=== PATIENT | male | born 1985 | race Caucasian/White ===

== ENCOUNTER 2016-10-05 14:28 | Emergency (ER) | payer BC ==
[2016-10-05 15:26] VITALS: BP 124/74
--- NOTE | 2016-10-05 15:51 | UC ---
Throat Pain/Nasal Teofilo HPI - HPI Summary HPI Summary: 30 year old male with complaints of sudden onset last evening of stuffy runny, scratchy throat, and cough. He states he has improved with over the counter decongestant. 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 Denies fever, chills or difficulty breathing - History of Current Complaint Chief Complaint: UCRespiratory Stated Complaint: COUGH,FEVER Time Seen by Provider: 10/05/16 15:37 Hx Obtained From: Patient Onset/Duration: Sudden Onset, Lasting Days - 1, Still Present Severity: Moderate Cough: Nonproductive Associated Signs & Symptoms: Positive: Dysphagia - mild, Nasal Discharge - clear , Fever - not measured. Negative: FB Sensation, Drooling, Wheezing, Hoarseness , Sinus Discomfort, Vomiting, Rash - Epiglottits Risk Factors Epiglottis Risk Factors: Negative - Allergies/Home Medications Allergies/Adverse Reactions: Allergies Allergy/AdvReac Type Severity Reaction Status Date / Time Pertussis Vaccine Allergy Rash Verified 10/05/16 15:17 Home Medications: Home Medications Aoloofa-Lqybgeabcefxg-Myopwrcq [Excedrin Extra Strength] 1 tab PO PRN 10/05/16 [ History] Zeljogqybaudw-Tfehmjcjpl-Rsnyy [DAY TIME/NITE TIME COLD (Liquid)] 20 ml PO Q4H PRN 10/05/16 [History Confirmed 10/05/16] Probiotic Product [Probiotic Daily] 1 cap PO DAILY 10/05/16 [History Confirmed 10/05/16] PMH/Surg Hx/FS Hx/Imm Hx Previously Healthy: Yes Endocrine History Of: Denies: Diabetes Respiratory History Of: Denies: Asthma GI/ History Of: Denies: Gastroesophageal Reflux - Surgical History Surgical History: Yes Surgery Procedure, Year, and Place: 1991, CHEST, [place]. 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, PT HAD HX ETOH ABUSE FEW YEARS AGO Substance Use Type: None Smoking Status (MU): Never Smoked Tobacco Have You Smoked in the Last Year: No - Immunization History Most Recent Influenza Vaccination: NOT IN 2016 Most Recent Tetanus Shot: UP TO DATE Most Recent Pneumonia Vaccination: NEVER Hx Tetanus, Diphtheria Vaccination: Yes Vaccination Up to Date: Yes Review of Systems Constitutional: Fever, Chills - last night and has resolved Skin: Negative Eyes: Negative ENT: Sore Throat - mild, Nasal Discharge - clear Respiratory: Cough - tickle Cardiovascular: Negative Gastrointestinal: Negative Genitourinary: Negative Motor: Negative Neurovascular: Negative Musculoskeletal: Negative Neurological: Negative Psychological: Negative All Other Systems Reviewed And Are Negative: Yes Physical Exam Triage Information Reviewed: Yes Appearance: No Pain Distress, Well-Nourished, Ill-Appearing - mildly Vital Signs: Initial Vital Signs Temp 98.1 F 10/05/16 15:20 Pulse 91 10/05/16 15:20 Resp 20 10/05/16 15:20 BP 124/74 10/05/16 15:20 Pulse Ox 97 10/05/16 15:20 Vital Signs Reviewed: Yes Eyes: Positive: Conjunctiva Clear. Negative: Discharge ENT: Positive: Hearing grossly normal, Nasal congestion, Nasal drainage - white post nasal mucus, TMs normal, Other: - no sinus pain or pressure with palpation. Negative: Pharyngeal erythema, Tonsillar swelling Neck: Positive: Supple, Nontender, No Lymphadenopathy Respiratory: Positive: Lungs clear, Normal breath sounds, Other: - no cough noted upon exam. Negative: Crackles, Wheezing Cardiovascular: Positive: RRR, No Murmur Musculoskeletal: Positive: Strength Intact, ROM Intact Neurological: Positive: Alert, Muscle Tone Normal Psychological: Positive: Age Appropriate Behavior - pleasant and cooperative Skin: Negative: rashes, breakdown Throat Pain/Nasal Course/Dx - Differential Dx/Diagnosis Differential Diagnosis/HQI/PQRI: Pharyngitis, URI Provider Diagnoses: Upper Respiratory Infection Discharge - Discharge Plan Condition: Stable Disposition: HOME Prescriptions: Benzonatate CAP* [Tessalon CAP*] 100 mg PO Q8H PRN #15 cap PRN Reason: Cough Fluticasone NASAL SPRAY 50MCG* [Flonase NASAL SPRAY 50MCG*] 1 spray BOTH NARES DAILY #1 btl Patient Education Materials: Upper Respiratory Infection (ED), Fluticasone ( Into the nose), Benzonatate (By mouth) Referrals: No Primary Care Phys,NOPCP [Primary Care Provider] - [facility] [place] [facility] REFERRAL [Outside]
== END 2016-10-05 16:06 | disposition home or self-care (01) ==
LOC: UCCORT 14:28
DX: J06.9 Acute upper respiratory infection, unspecified (principal); Z88.7 Allergy status to serum and vaccine; Z79.82 Long term (current) use of aspirin
CPT/HCPCS: 99212; G0463

== ENCOUNTER 2016-10-11 11:36 | Emergency (ER) | payer BC ==
[2016-10-11 11:55] VITALS: BP 114/75
--- NOTE | 2016-10-11 12:09 | UC ---
Respiratory Complaint HPI - HPI Summary HPI Summary: Was here last week because he had a dry, tickling cough. He feels like the congestion is deeper in the chest and he is producing dark brown sputum. Last night he also had body aches. Here with SUNITHA Moore. Her dad had same things at [facility] and was treated with inhaler and zpack. + wheezing. no asthma. never needed inhlaer or prednisone for anything like this in past. felt efevrish on day #1 but not since. does not recall if he took any meds since then. 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 - History of Current Complaint Chief Complaint: UCRespiratory Stated Complaint: CHEST CONGESTION, COUGH Time Seen by Provider: 10/11/16 12:08 - Allergies/Home Medications Allergies/Adverse Reactions: Allergies Allergy/AdvReac Type Severity Reaction Status Date / Time Pertussis Vaccine Allergy Rash Verified 10/11/16 11:55 PMH/Surg Hx/FS Hx/Imm Hx Previously Healthy: Yes Endocrine History Of: Denies: Diabetes Respiratory History Of: Denies: Asthma GI/ History Of: Denies: Gastroesophageal Reflux - Surgical History Surgical History: Yes Surgery Procedure, Year, and Place: 1991, CHEST, [place]. 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, PT HAD HX ETOH ABUSE FEW YEARS AGO Substance Use Type: None Smoking Status (MU): Never Smoked Tobacco Have You Smoked in the Last Year: No - Immunization History Most Recent Influenza Vaccination: NOT IN 2015 Most Recent Tetanus Shot: UP TO DATE Most Recent Pneumonia Vaccination: NEVER Hx Tetanus, Diphtheria Vaccination: Yes Vaccination Up to Date: Yes Review of Systems Constitutional: Negative Skin: Negative Eyes: Negative ENT: Sore Throat, Nasal Discharge Respiratory: Cough Cardiovascular: Negative Gastrointestinal: Negative Genitourinary: Negative Motor: Negative Neurovascular: Negative Musculoskeletal: Negative Neurological: Negative Psychological: Negative All Other Systems Reviewed And Are Negative: Yes Physical Exam Triage Information Reviewed: Yes Appearance: Well-Appearing, No Pain Distress, Well-Nourished Vital Signs: Initial Vital Signs Temp 98.2 F 10/11/16 11:48 Pulse 85 10/11/16 11:48 Resp 14 10/11/16 11:48 BP 114/75 10/11/16 11:48 Pulse Ox 100 10/11/16 11:48 Vital Signs Reviewed: Yes Eye Exam: Normal ENT: Positive: Pharyngeal erythema - + PND, no sinus tenderness, Nasal congestion, TMs normal. Negative: Tonsillar swelling, Tonsillar exudate Dental Exam: Normal Neck exam: Normal Neck: Positive: Supple, Nontender, No Lymphadenopathy Respiratory: Positive: Chest non-tender, No respiratory distress, No accessory muscle use, Decreased breath sounds, Rhonchi, Wheezing - b/l and throughout Cardiovascular: Positive: RRR, No Murmur, Pulses Normal, Brisk Capillary Refill Abdominal Exam: Normal Abdomen Description: Positive: Nontender, Soft Musculoskeletal Exam: Normal Neurological Exam: Normal Psychological Exam: Normal Skin Exam: Normal UC Diagnostic Evaluation - Laboratory O2 Sat by Pulse Oximetry: 100 Respiratory Course/Dx - Course Course Of Treatment: Alb neb treatment given. he is feeling better adn can take deeper breath. breath sounds improved but still whith rhonchi and wheezing b/l but improved. CXR done and neg. Nebulizer arranged through [facility]. I reveiwed that he doesnt need antibiotic at this time and he and his GF are very agreeable with this. - Differential Dx/Diagnosis Differential Diagnosis/HQI/PQRI: Bronchitis, Laryngitis, Lower Resp Infection, Sinusitis Provider Diagnoses: Bronchitis Discharge - Discharge Plan Condition: Stable Disposition: HOME Prescriptions: Albuterol 2.5MG/3ML (0.083%)* [Ventolin 2.5 MG/3 ML NEB.THOMAS*] 2.5 mg INH Q4H #1 neb.thomas Methylprednisolone [Medrol Dosepak 4 MG*] 4 mg PO DAILY #1 cindy Patient Education Materials: Acute Bronchitis (ED) Referrals: No Primary Care Phys,NOPCP [Primary Care Provider] - Additional Instructions: A list of PCPs has been given to you to follow up with in 2-3 days. You can come back here if your symptoms increase or persist. chest xray was neg for pneumonia. we discussed risks of prednisone including but not limited to insomnia, indigestion. anxiety, elevated blood sugars and blood pressures, back hump and avascular necrosis of the hip. [facility] will be delivering the nebulizer to you . use alb every 4-6 hrs until your symptoms resolve. plenty of water and rest.
[2016-10-11] MEDS ORDERED: Albuterol 2.5 MG/3 ML NEB.SOL* (0.083%) INH ONE (12:26)
--- NOTE | 2016-10-11 13:27 | RAD ---
HISTORY: Cough, rhonchi, wheezing COMPARISONS: April 15, 2015 VIEWS: 2: Frontal dual-energy and lateral views of the chest. FINDINGS: CARDIOMEDIASTINAL SILHOUETTE: The cardiomediastinal silhouette is normal. ZACK: The zack are normal. PLEURA: The costophrenic angles are sharp. No pleural abnormalities are noted. LUNG PARENCHYMA: The lungs are clear. ABDOMEN: The upper abdomen is clear. There is no subphrenic gas. BONES AND SOFT TISSUES: No bone or soft tissue abnormalities are noted. OTHER: None. IMPRESSION: NO ACTIVE CARDIOPULMONARY DISEASE.
== END 2016-10-11 13:38 | disposition home or self-care (01) ==
LOC: UCCORT 11:36
DX: J40 Bronchitis, not specified as acute or chronic (principal); Z88.7 Allergy status to serum and vaccine
CPT/HCPCS: 71020; 99212; G0463

== ENCOUNTER 2017-09-08 07:33 | Emergency (ER) | payer BC ==
[2017-09-08 07:43] VITALS: BP 129/77
--- NOTE | 2017-09-08 08:07 | UC ---
Respiratory Complaint HPI - HPI Summary HPI Summary: 31 yo gentleman c/o nearly 2 weeks progressive cough, congestion. Lately sputum has turned green. No sob except with cough. + nausea with cough. No rash. No heart or otherwise gi c/o's. + sinus congestion. Has nebulizer at home, still some meds. Does not currently have a doctor. - History of Current Complaint Chief Complaint: UCGeneralIllness Stated Complaint: SINUS/COUGH Time Seen by Provider: 09/08/17 07:53 Hx Obtained From: Patient Character: Cough: Productive - Allergies/Home Medications Allergies/Adverse Reactions: Allergies Allergy/AdvReac Type Severity Reaction Status Date / Time Pertussis Vaccine Allergy Rash Verified 09/08/17 07:43 PMH/Surg Hx/FS Hx/Imm Hx Previously Healthy: Yes - pmh reviewed - Surgical History Surgical History: Yes Surgery Procedure, Year, and Place: 1991, CHEST, [place]. 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, PT HAD HX ETOH ABUSE FEW YEARS AGO Substance Use Type: None Smoking Status (MU): Never Smoked Tobacco Have You Smoked in the Last Year: No - Immunization History Most Recent Influenza Vaccination: not current Most Recent Tetanus Shot: UP TO DATE Most Recent Pneumonia Vaccination: NEVER Hx Tetanus, Diphtheria Vaccination: Yes Vaccination Up to Date: Yes Review of Systems Constitutional: Fatigue Skin: Negative Eyes: Negative ENT: Nasal Discharge, Sinus Congestion Respiratory: Cough Cardiovascular: Negative Gastrointestinal: Negative - see hpi Genitourinary: Negative Motor: Negative Neurovascular: Negative Musculoskeletal: Negative Neurological: Negative Psychological: Negative Is Patient Immunocompromised?: No All Other Systems Reviewed And Are Negative: Yes Physical Exam Triage Information Reviewed: Yes Appearance: Well-Nourished Vital Signs: Initial Vital Signs Temp 98.1 F 09/08/17 07:38 Pulse 85 09/08/17 07:38 Resp 18 09/08/17 07:38 BP 129/77 09/08/17 07:38 Pulse Ox 99 09/08/17 07:38 Vital Signs Reviewed: Yes Eye Exam: Normal ENT: Positive: Pharyngeal erythema - mild post phar redness, no sores, TM dull Neck exam: Normal Neck: Positive: Supple, Nontender Respiratory Exam: Other - no stridor. + rhonchorus cough, + exp wheeze bb mild. bs o/w clear and equal. Cardiovascular Exam: Normal Cardiovascular: Positive: RRR, No Murmur, Pulses Normal, Brisk Capillary Refill Abdominal Exam: Normal Musculoskeletal Exam: Normal Neurological Exam: Normal - nonfocal grossly Psychological Exam: Normal Skin Exam: Normal UC Diagnostic Evaluation - Laboratory O2 Sat by Pulse Oximetry: 99 Respiratory Course/Dx - Course Course Of Treatment: No new problems in CCC. Questions as posed answered to the best of my ability. Declines work note. - Differential Dx/Diagnosis Provider Diagnoses: bronchitis acute with wheezing Discharge - Discharge Plan Condition: Stable Disposition: HOME Patient Education Materials: Acute Bronchitis (ED), Wheezing (ED) Referrals: No Primary Care Phys,NOPCP [Primary Care Provider] - [facility] [place] [facility] [place]Outside] Additional Instructions: Follow up primary care provider in the next 4 weeks if possible. Seek medical attention for worse or new problems in the meantime.
== END 2017-09-08 08:14 | disposition home or self-care (01) ==
LOC: UCCORT 07:33
DX: J20.9 Acute bronchitis, unspecified (principal); Z88.7 Allergy status to serum and vaccine
CPT/HCPCS: 99212; G0463

== ENCOUNTER 2018-05-12 13:13 | Emergency (ER) | payer BC ==
--- OUTSIDE RECORDS SUMMARY | 2018-05-12 13:24 | XMS REPORT ---
:1985 External Reference #:[id number] Author Organization [facility] Address [address] [place] [address] Phone [phone] Care Team Providers Name Role Phone De Carter MD Care Team Information Encapsulator Unavailable De Carter MD Primary Care Physician Unavailable Payers Type Date Identification Numbers Payment Provider Subscriber Commercial Effective: Policy Number: BC/BS Of ROJELIO Jude Parker Oscar 2018 [id number] PayID: [id number] [address] [address] [place] [address] Problems Description No Information Family History Date Family Member(s) Problem(s) Comments Father No Current Problems Mother No Current Problems Social History Type Date Description Comments Smoking Patient has never smoked Allergies, Adverse Reactions, Alerts Date Description Reaction Status Severity Comments 04/24/2015 Pertussis active Medications Medication Date Status Form Strength Qnty SIG Indications Ordering Provider Pantoprazole Active Tablets DR 40mg 30tabs 1 by De Buckley 018 mouth Raul bowers MD Am. Eat 30 min later. Naproxen Active Tablets 500mg 60tabs twice a M25.322 De Seth 018 day as Raul clarke MD Multi Active Tablets Unknown Complete/Iron 000 Probiotic Active Capsules Unknown 000 No Active Hx Unknown Medications 015 - [address] 20mg 30caps 1 by Jose Manuel Bateman 015 - mouth M.D. bid 018 Vital Signs Date Vital Result Comment 04/23/2018 BP Systolic 116 mmHg BP Diastolic 76 mmHg Heart Rate 68 /min Body Temperature 98.6 F Respiratory Rate 16 /min Height 68.25 inches 5'8.25" Weight 166.12 lb BMI (Body Mass Index) 25.1 kg/m2 04/16/2018 BP Systolic 118 mmHg BP Diastolic 68 mmHg Heart Rate 60 /min Body Temperature 97.9 F Respiratory Rate 16 /min Height 68.5 inches 5'8.50" Weight 168.00 lb BMI (Body Mass Index) 25.2 kg/m2 04/09/2018 BP Systolic 118 mmHg BP Diastolic 72 mmHg Heart Rate 72 /min Body Temperature 97.9 F Height 68.5 inches 5'8.50" Weight 167.00 lb BMI (Body Mass Index) 25.0 kg/m2 04/24/2015 BP Systolic 120 mmHg BP Diastolic 70 mmHg Heart Rate 60 /min Body Temperature 98.0 F Respiratory Rate 16 /min Height 68.5 inches 5'8.50" Weight 158.00 lb BMI (Body Mass Index) 23.7 kg/m2 Results Test Date Test Result H/L Range Note CBC Auto Diff 04/23/2015 White Blood Count 3.6 10^3/uL Low 4.8-10.8 Red Blood Count 3.63 10^6/uL Low 4.0-5.4 Hemoglobin 10.9 g/dL Low 14.0-18.0 Hematocrit 32 % Low 42-52 Mean Corpuscular Volume 89 fL 80-94 Mean Corpuscular Hemoglobin 30 pg 27-31 Mean Corpuscular HGB Conc 34 g/dL 31-36 Red Cell Distribution Width 17 % High 10.5-15 Platelet Count 114 10^3/uL Low 150-450 Mean Platelet Volume 10 um3 7.4-10.4 Abs Neutrophils 2.2 10^3/uL 1.5-7.7 Abs Lymphocytes 1.0 10^3/uL 1.0-4.8 Abs Monocytes 0.3 10^3/uL 0-0.8 Abs Eosinophils 0 10^3/uL 0-0.6 Abs Basophils 0 10^3/uL 0-0.2 Abs Nucleated RBC 0.01 10^3/uL Granulocyte % 60.8 % 38-83 Lymphocyte % 29.1 % 25-47 Monocyte % 8.0 % 1-9 Eosinophil % 1.3 % 0-6 Basophil % 0.8 % 0-2 Nucleated Red Blood Cells % 0.4 Basic Metabolic Panel 04/23/2015 Sodium 139 mmol/L 133-145 Potassium 3.8 mmol/L 3.5-5.0 Chloride 105 mmol/L 101-111 Co2 Carbon Dioxide 29 mmol/L 22-32 Anion Gap 5 mmol/L 2-11 Glucose 88 mg/dL 70-100 Blood Urea Nitrogen 15 mg/dL 6-24 Creatinine 0.80 mg/dL 0.67-1.17 BUN/Creatinine Ratio 18.8 8-20 Calcium 9.2 mg/dL 8.6-10.3 Egfr Non- 115.1 >60 Egfr 148.0 >60 1 1 Because ethnic data is not always readily available, this report includes an eGFR for both -Americans and non- Americans. The National Kidney Disease Education Program (NKDEP) does not endorse the use of the MDRD equation for patients that are not between the ages of 18 and 70, are , have extremes of body size, muscle mass, or nutritional status, or are non- or non-. According to the National Kidney Foundation, irrespective of diagnosis, the stage of the disease is based on the level of kidney function: Stage Description GFR(mL/min/1.73 m(2)) 1 Kidney damage with normal or decreased GFR 90 2 Kidney damage with mild decrease in GFR 60-89 3 Moderate decrease in GFR 30-59 4 Severe decrease in GFR 15-29 5 Kidney failure <15 (or dialysis) Procedures Description No Information Encounters Type Date Location Provider CPT E/M Dx Office Visit 04/16/2018 9:50a [facility] Office De Carter 32708 R12 Office Visit 04/09/2018 8:30a [facility] De Carter 19916 M25.322 Office Visit 04/24/2015 3:00p [facility] Jose Manuel Bateman M.D. 11511 530.7 Plan of Care 04/23/2018 - De Carter MDZ00.00 Encntr for general adult medical exam w/o abnormal findingsNew Labs:CBC Electronic-ALL Lab CompaniComp Metabolic- ALL Lab CompaniLipid Panel-ALL Lab CompaniesAllComments:~B_~U_Medication Management~b_~u_ Patient Understands medications he's taking? Yes No Are there Barriers to Adherence? Yes No Has the patient been asked about herbal supplements and therapies, and OTC meds? Yes No
--- OUTSIDE RECORDS SUMMARY | 2018-05-12 13:24 | XMS REPORT ---
:1985 External Reference #:[id number] Author Organization [facility] Address [address] [place] [address] Phone [phone] Care Team Providers Name Role Phone De Carter MD Care Team Information Bar Assistant Unavailable De Carter MD Primary Care Physician Unavailable Payers Type Date Identification Numbers Payment Provider Subscriber Commercial Effective: Policy Number: BC/BS Of ROJELIO Jude Parker Oscar 2018 [id number] PayID: [id number] [place] [id number] Problems Description No Information Social History Description No Information Available Allergies, Adverse Reactions, Alerts Date Description Reaction Status Severity Comments 04/24/2015 Pertussis active Medications Medication Date Status Form Strength Qnty SIG Indications Ordering Provider Pantoprazole Active Tablets DR 40mg 30tabs 1 by De Buckley 018 mouth Raul bowers MD Am. Eat 30 min later. Naproxen Active Tablets 500mg 60tabs twice a M25.322 De Cee day as Raul clarke MD Multi Active Tablets Unknown Complete/Iron 000 Probiotic Active Capsules Unknown 000 No Active Hx Unknown Medications 015 - [address] 20mg 30caps 1 by Jose Manuel Bateman 015 - mouth M.DMalcolm bid 018 Vital Signs Date Vital Result Comment 04/16/2018 BP Systolic 118 mmHg BP Diastolic [...] Location Provider CPT E/M Dx Office Visit 04/09/2018 8:30a [facility] De Carter, [address] M25.322 Office Visit 04/24/2015 3:00p [facility] Jose Manuel Bateman M.D. 38179 530.7 Plan of Care Future Appointment(s):04/23/2018 2:20 pm - De Carter MD at Main [facility]704/16/2018 - De Carter, MDR12 HeartburnAllNew Medication: Pantoprazole Sodium 40 mgComments:~B_~U_Medication Management~b_~u_ Patient Understands medications he's taking? Yes No Are there Barriers to Adherence? Yes No Has the patient been asked about herbal supplements and therapies, and OTC meds? Yes No
[2018-05-12 13:31] VITALS: BP 105/62
--- NOTE | 2018-05-12 13:36 | UC ---
Skin Complaint HPI - HPI Summary HPI Summary: Patient presents stating on Thursday he had a small pimple under his right lip. Patient states he squeezed it and express some purulent discharge. Patient states he may have some edema to the lateral aspect. Patient states the following morning he had similar inflamed hair follicle upper lip mustache. Patient states he squeezed it a large amount of pus from this wound. Patient then developed ongoing swelling of his right orbicularis area. Patient has been applying heat and cold. Patient's been applying salve. Patient states as well as getting better but is [employer] and warm. Patient states he had chills but no fevers. Patient is not immunocompromised. Patient does not have MRSA although he knows a friend of his does. His tetanus is up-to-date. Patient without any dental pain. Patient without any airway problems. Patient without a difficulty swallowing. Patient has not taken anything for pain. Patient without any ear pain or neck pain. Pt's medications reviewed this visit - History of Current Complaint Chief Complaint: UCSkin Time Seen by Provider: 05/12/18 13:35 Stated Complaint: SWELLING RT SIDE OF FACE Hx Obtained From: Patient Pain Intensity: 5 - Allergy/Home Medications Allergies/Adverse Reactions: Allergies Allergy/AdvReac Type Severity Reaction Status Date / Time Pertussis Vaccines Allergy Rash Verified 05/12/18 13:26 Home Medications: Home Medications Pantoprazole Sodium [Protonix] 40 mg PO DAILY 05/12/18 [History Confirmed ] Review of Systems Constitutional: Chills Skin: Other - swelling reddness All Other Systems Reviewed And Are Negative: Yes PMH/Surg Hx/FS Hx/Imm Hx Previously Healthy: Yes - Surgical History Surgical History: Yes Surgery Procedure, Year, and Place: 1991, CHEST (REMOVAL OF LIPOMA/FATTY TISSUE) , [facility];. 2003, LEFT ELBOW, [facility];. ENDOSCOPY TO REPAIR TEAR;. 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, PT HAD HX ETOH ABUSE FEW YEARS AGO Substance Use Type: None Smoking Status (MU): Never Smoked Tobacco Have You Smoked in the Last Year: No - Immunization History Most Recent Influenza Vaccination: not current Most Recent Tetanus Shot: UP TO DATE Most Recent Pneumonia Vaccination: NEVER Hx Tetanus, Diphtheria Vaccination: Yes Vaccination Up to Date: Yes Physical Exam - Summary Physical Exam Summary: Vital Signs Reviewed: Yes A+Ox3, no distress Eyes: Conjunctiva Clear, RAJANI, EOM intact and full ENT: Hearing grossly normal, TM x 2 clear turbinates wnl no intra-oral edema Right upper lateral lip oustide kenna border with edema, warmth, mild erythema. Pt with scab in center of wound. No fluctuance, no abscess neck: supple Respiratory: Positive: No respiratory distress, No accessory muscle use CTA throughout no w/r Cardiovascular: skin color reflect adequate perfusion RRR nl s1 s2 Musculoskeletal Exam: LEON x 4 without difficulty Neurological: Positive: Alert, ambulatory without difficulty Psychological: Positive: Normal Response To Family Skin: Positive: no rash, no ecchymosis Triage Information Reviewed: Yes Vital Signs: Initial Vital Signs Temp 98.5 F 05/12/18 13:23 Pulse 57 05/12/18 13:23 Resp 14 05/12/18 13:23 BP 105/62 05/12/18 13:23 Pulse Ox 99 05/12/18 13:23 Course/Dx - Course Course Of Treatment: Patient presents with swelling of his right upper lip after popping a pimple with. Discharge. Patient with some warmth and edema. No erythema. Patient states it's gotten better but not resolved. Patient is not immunocompromised. Vital signs stable. Strict return precautions. We'll start doxycycline. Warm soaks. Patient comfortable in agreement with plan. - Diagnoses Provider Diagnoses: facial cellulitis Discharge - Sign-Out/Discharge Documenting (check all that apply): Patient Departure - Discharge Plan Condition: Stable Disposition: HOME Prescriptions: DOXYcycline CAP(*) [DOXYcycline 100MG CAP(*)] 100 mg PO BID #20 cap Patient Education Materials: Cellulitis (ED) Referrals: De Carter MD [Primary Care Provider] - Additional Instructions: - Apply wet, warm soaks 3 times a day for 10 min each - Take antibiotics as prescribed until gone - Okay to alternate ibuprofen (advil, motrin) and tylenol every hours for pain. Take with food. Do NOT take for more than 4-5 days. - if you develop increased facial swelling, swelling to your ear or down your neck, have difficulty swallowing, fevers or any other concerns it is recommended you go to the emergency department for further evaluation and treatment - Billing Disposition and Condition Condition: STABLE Disposition: Home
== END 2018-05-12 13:56 | disposition home or self-care (01) ==
LOC: UCCORT 13:13
DX: L03.211 Cellulitis of face (principal)
CPT/HCPCS: 99212; G0463

== ENCOUNTER 2019-01-11 15:02 | Emergency (ER) | payer BC ==
[2019-01-11 15:15] VITALS: BP 124/69
--- NOTE | 2019-01-11 15:17 | UC ---
UC General HPI - HPI Summary HPI Summary: day 3 of headache, nasal congestion, ear discomfort, sore throat. + cough, chills. - History of Current Complaint Stated Complaint: CHILLS/SINUS/HEADACHE/EARS Time Seen by Provider: 01/11/19 15:10 Hx Obtained From: Patient Onset/Duration: Gradual Onset Timing: Constant Associated Signs & Symptoms: Negative: Abdominal Pain, Diarrhea, Vomiting - Allergy/Home Medications Allergies/Adverse Reactions: Allergies Allergy/AdvReac Type Severity Reaction Status Date / Time Pertussis Vaccines Allergy Rash Verified 01/11/19 15:15 PMH/Surg Hx/FS Hx/Imm Hx GI/ History: Gastrointestional Bleed - chrissy jered tear - Surgical History Surgical History: Yes Surgery Procedure, Year, and Place: 1991, CHEST (REMOVAL OF LIPOMA/FATTY TISSUE) , [place];. 2003, LEFT ELBOW, [facility];. ENDOSCOPY TO REPAIR TEAR;. 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, PT HAD HX ETOH ABUSE FEW YEARS AGO Substance Use Type: None Smoking Status (MU): Never Smoked Tobacco Have You Smoked in the Last Year: No - Immunization History Most Recent Influenza Vaccination: not current Most Recent Tetanus Shot: UP TO DATE Most Recent Pneumonia Vaccination: NEVER Hx Tetanus, Diphtheria Vaccination: Yes Vaccination Up to Date: Yes Review of Systems All Other Systems Reviewed And Are Negative: Yes Constitutional: Positive: Fever, Chills ENT: Positive: Sore Throat, Ear Ache, Sinus Congestion Respiratory: Positive: Cough Musculoskeletal: Positive: Myalgia Neurological: Positive: Headache Physical Exam Triage Information Reviewed: Yes Appearance: Ill-Appearing - but non toxic Eyes: Positive: Conjunctiva Clear ENT: Positive: Pharyngeal erythema - mild, TMs normal. Negative: Nasal drainage Neck: Positive: Supple, Nontender, No Lymphadenopathy Respiratory: Positive: Lungs clear, Normal breath sounds, No respiratory distress Cardiovascular: Positive: RRR, No Murmur Abdomen Description: Positive: Nontender Bowel Sounds: Positive: Present Musculoskeletal: Positive: ROM Intact Neurological: Positive: Alert Psychological: Positive: Age Appropriate Behavior Skin Exam: Normal Course/Dx - Course Course Of Treatment: RAPID STREP=NEG. RAPID FLU=POSITIVE A - Diagnoses Provider Diagnosis: Influenza A Discharge - Sign-Out/Discharge Documenting (check all that apply): Patient Departure All imaging exams completed and their final reports reviewed: No Studies - Discharge Plan Condition: Stable Disposition: HOME Patient Education Materials: Influenza (DC) Forms: *Work Release Referrals: De Carter MD [Primary Care Provider] - Additional Instructions: FOLLOW UP WITH PRIMARY CARE IF NOT BETTER IN 5 DAYS OR SOONER IF WORSE. - Billing Disposition and Condition Condition: STABLE Disposition: Home - Attestation Statements Provider Attestation: Per institutional requirements, I have reviewed the chart, however, I was not consulted specifically or made aware of this patient by the midlevel provider. I did not personally evaluate, interact with , or disposition this patient.
[2019-01-12 08:26] LABS: Influenza A Molecular POSITIVE (Negative)
== END 2019-01-11 15:56 | disposition home or self-care (01) ==
LOC: UCCORT 15:02
DX: J10.1 Influenza due to other identified influenza virus with other respiratory manifestations (principal); Z88.7 Allergy status to serum and vaccine
CPT/HCPCS: 87651; 99211; G0463

== ENCOUNTER 2019-12-12 11:14 | Emergency (ER) | payer BC ==
[2019-12-12 11:32] VITALS: BP 139/81
--- NOTE | 2019-12-12 12:00 | UC ---
Respiratory Complaint HPI - HPI Summary HPI Summary: 33 yo male with one week hx of nasal congestion/post nasal drip/chills and sore throat no n/v/d no cp or sob some CORTES - History of Current Complaint Chief Complaint: UCRespiratory Stated Complaint: THROAT,PND Time Seen by Provider: 12/12/19 11:47 Hx Obtained From: Patient Onset/Duration: Gradual Onset, Lasting Weeks - 1 Severity Currently: Moderate Pain Intensity: 0 Pain Scale Used: 0-10 Numeric Character: Cough: Nonproductive Associated Signs And Symptoms: Positive: Chills, Nasal Congestion, Sinus Discomfort - Allergies/Home Medications Allergies/Adverse Reactions: Allergies Allergy/AdvReac Type Severity Reaction Status Date / Time Pertussis Vaccines Allergy Rash Verified 12/12/19 11:29 Home Medications: Home Medications Fluticasone NASAL SPRAY 50MCG* [Flonase NASAL SPRAY 50MCG*] 2 spray BOTH NARES BID #1 btl 12/12/19 [Rx] PMH/Surg Hx/FS Hx/Imm Hx Previously Healthy: Yes - Surgical History Surgical History: Yes Surgery Procedure, Year, and Place: 1991, CHEST (REMOVAL OF LIPOMA/FATTY TISSUE) , [facility];. 2003, LEFT ELBOW, [facility];. ENDOSCOPY TO REPAIR TEAR;. 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, PT HAD HX ETOH ABUSE FEW YEARS AGO Substance Use Type: None Substance Use Comment - Amount & Last Used: occasional Smoking Status (MU): Never Smoked Tobacco Have You Smoked in the Last Year: No - Immunization History Most Recent Influenza Vaccination: not current Most Recent Tetanus Shot: UP TO DATE Most Recent Pneumonia Vaccination: NEVER Hx Tetanus, Diphtheria Vaccination: Yes Vaccination Up to Date: Yes Review of Systems All Other Systems Reviewed And Are Negative: Yes Constitutional: Positive: Chills, Fatigue Skin: Positive: Negative Eyes: Positive: Negative ENT: Positive: Sore Throat, Ear Ache, Nasal Discharge, Sinus Congestion Respiratory: Positive: Cough Cardiovascular: Positive: Negative Gastrointestinal: Positive: Negative Genitourinary: Positive: Negative Motor: Positive: Negative Neurovascular: Positive: Negative Musculoskeletal: Positive: Myalgia Neurological/Mental Status: Positive: Negative Psychological: Positive: Negative Physical Exam Triage Information Reviewed: Yes Appearance: Well-Appearing, No Pain Distress, Well-Nourished Vital Signs: Initial Vital Signs Temp 98.7 F 12/12/19 11:27 Pulse 86 12/12/19 11:27 Resp 16 12/12/19 11:27 BP 139/81 12/12/19 11:27 Pulse Ox 99 12/12/19 11:27 Vital Signs Reviewed: Yes Eyes: Positive: Conjunctiva Clear ENT: Positive: Hearing grossly normal, Pharyngeal erythema, Nasal congestion, Nasal drainage, TM bulging, Uvula midline. Negative: Tonsillar swelling, Tonsillar exudate, Trismus, Muffled voice, Hoarse voice, Dental tenderness, Sinus tenderness Dental Exam: Normal Neck: Positive: Supple, Nontender, No Lymphadenopathy Respiratory: Positive: Lungs clear, Normal breath sounds, No respiratory distress, No accessory muscle use Cardiovascular: Positive: RRR, No Murmur Abdomen Description: Positive: Nontender, No Organomegaly. Negative: CVA Tenderness (R), CVA Tenderness (L) Bowel Sounds: Positive: Present Musculoskeletal: Positive: ROM Intact, No Edema Neurological: Positive: Alert, Muscle Tone Normal Psychological Exam: Normal Skin Exam: Normal Diagnostics - Laboratory Lab Results: strep (-) influenza (-) Respiratory Course/Dx - Differential Dx/Diagnosis Provider Diagnosis: Acute rhinosinusitis Discharge ED - Sign-Out/Discharge Documenting (check all that apply): Patient Departure All imaging exams completed and their final reports reviewed: No Studies - Discharge Plan Condition: Stable Disposition: HOME Prescriptions: Fluticasone NASAL SPRAY 50MCG* [Flonase NASAL SPRAY 50MCG*] 2 spray BOTH NARES BID #1 btl Patient Education Materials: Rhinosinusitis (ED) Forms: *Work Release Referrals: De Carter MD [Primary Care Provider] - 4 Days (if not better) Additional Instructions: flu and strep (-) continue the zicam and sudafed nasal nasal spray - 2 sprays each nostril twice daily blow nose then about 5 minutes later flonase 2 sprays each nostril twice daily benadryl 25 mg take two at bedtime warm facial compresses - Billing Disposition and Condition Condition: STABLE Disposition: Home
[2019-12-12 12:21] LABS: Influenza A Molecular Negative (Negative); Influenza B Molecular Negative (Negative)
== END 2019-12-12 12:37 | disposition home or self-care (01) ==
LOC: UCCORT 11:14
DX: J01.90 Acute sinusitis, unspecified (principal); J02.9 Acute pharyngitis, unspecified; Z88.7 Allergy status to serum and vaccine
CPT/HCPCS: 87651; 99212; G0463